=== PATIENT | female | born 1965 ===

== ENCOUNTER 2019-06-25 09:00 | Inpatient (IN) | payer OTHER ==
[~2019-06-25] VITALS: Ht 149.9 cm; Wt 81.2 kg
[2019-06-28] MEDS ORDERED: DICLOFENAC POTA50 MG PO (08:22)
[2019-06-28] MEDS ORDERED: GABAPENTIN800 M1 PO (08:22)
[2019-06-28] MEDS ORDERED: ALBUTEROL2.5 MG/3 M (08:23)
[2019-06-28] MEDS ORDERED: TEGRETOL200 MG PO (08:26)
[2019-06-28] MEDS ORDERED: SINGULAIR10 MG PO (08:27)
[2019-06-28] MEDS ORDERED: DIAZEPAM10 MG PO (12:43)
[2019-06-28] MEDS ORDERED: PERCOCET 5-3251 EACH PO (12:43)
[2019-06-28] MEDS ORDERED: COLACE100 MG PO (12:43)
== END 2019-06-29 12:12 | disposition home or self-care (01) | DRG 454 ==
LOC: SURG 06-28 05:35 → O/R 06-28 05:35 → SURH 06-28 09:00 → SURG 06-28 15:09 → SURH 06-28 16:00 → SURG 06-29 12:12
PROVIDERS: ADMIT Orthopaedic Surgery Orthopaedic Surgery of the Spine
PROC: 0RG2071 Fusion of 2 or more Cervical Vertebral Joints with Autologous Tissue Substitute, Posterior Approach, Posterior Column, Open Approach (ICD-10-PCS; 2019-06-28)
PROC: 0RT30ZZ Resection of Cervical Vertebral Disc, Open Approach (ICD-10-PCS; 2019-06-28)
PROC: 07DS3ZZ Extraction of Vertebral Bone Marrow, Percutaneous Approach (ICD-10-PCS; 2019-06-28)
PROC: 0RG20A0 Fusion of 2 or more Cervical Vertebral Joints with Interbody Fusion Device, Anterior Approach, Anterior Column, Open Approach (ICD-10-PCS; principal; 2019-06-28 16:00)
DX: M47.12 Other spondylosis with myelopathy, cervical region (principal); M50.021 Cervical disc disorder at C4-C5 level with myelopathy

== ENCOUNTER 2022-03-25 05:20 | Day surgery (SDC) | payer OTHER ==
[~2022-03-25 05:20] MED LIST: ALBUTEROL2.5 MG/3 M; COLACE100 MG PO; DIAZEPAM10 MG PO; DICLOFENAC POTA50 MG PO; GABAPENTIN800 M1 PO; PERCOCET 5-3251 EACH PO; SINGULAIR10 MG PO; TEGRETOL200 MG PO
[2022-03-25] MEDS ORDERED: NEXIUM 24HR20 M1 PO (09:15)
== END 2022-03-25 10:30 | disposition home or self-care (01) ==
LOC: AMB-ENDOS 05:20
PROVIDERS: ATTEND Surgery
DX: K29.50 Unspecified chronic gastritis without bleeding (principal); K44.9 Diaphragmatic hernia without obstruction or gangrene; K21.9 Gastro-esophageal reflux disease without esophagitis; Z20.822 Contact with and (suspected) exposure to COVID-19; E66.8 Other obesity; I10 Essential (primary) hypertension; M06.9 Rheumatoid arthritis, unspecified